=== PATIENT | female | born 1980 | race Caucasian/White ===

== ENCOUNTER → 2016-06-07 | Outpatient (CLI) | payer OTHER ==
[~2016-06-07] MED LIST: AMOXICILLIN500 MG PO; ANAPROX DS550 MG PO; BACTRIM DS 8001 TA1 PO; BIRTH CONTROL1 EAC1 PO; CIPRO500 MG PO; CLARITIN-D 10 M1 T21 PO; DAYPRO600 M1 PO; FLAGYL500 MG PO; FLEXERIL10 MG PO; FLEXERIL5 MG PO; FLONASE 0.05% 121 EA NAS; MONONESSA 35 MC1 TA2 PO; MOTRIN800 MG PO; NILSTAT,MY500000 UN/ PO; NORFLEX100 MG PO; PERCOCET 325 MG1 TA2 PO; PHENERGAN W/DM120 ML PO; PRENTAL 1 PLUS1 TAB PO; ROBAXIN750 MG PO; SUBOXONE 8 MG-1 EACH SL; SUDAFED60 M1 PO; TRAMADOL HCL50 MG PO; ULTRAM50 MG PO; VICODIN 500 MG-1 TAB PO; VITAMIN D1000 IU PO; VOLTAREN50 M1 PO; ZITHROMAX250 MG PO; ZYRTEC10 MG PO; [UNRECOGNIZED DRUG - REMARK]
[2016-06-07 09:16] LABS: BASO # 0.1 10*3/uL (0.0-0.1); BASO % 0.6 % (0.0-1.0); EOS # 0.6 10*3/uL (0.0-0.4); EOS % 4.7 % (1.0-4.0); HEMATOCRIT 40.7 % (37.0-47.0); HEMOGLOBIN 13.4 g/dl (12.0-16.0); IG # 0.1 10*3/uL (0.0-0.1); LYMPH # 3.6 10*3/uL (1.3-4.4); LYMPH % 28.8 % (27.0-41.0); MEAN CELL VOLUME 92.7 fl (81.0-99.0); MEAN CORPUSCULAR HGB 30.5 pg (27.0-31.0); MEAN CORPUSCULAR HGB CONC 32.9 g/dl (33.0-37.0); MEAN PLATELET VOLUME 10.8 fl (9.6-12.3); MONO % 7.7 % (3.0-9.0); NEUT # 7.2 10*3/uL (2.3-7.9); NEUT % 57.7 % (47.0-73.0); PLATELET COUNT AUTOMATED 277 10*3/uL (130-400); RED BLOOD COUNT 4.39 10*6/uL (4.10-5.10); RED CELL DISTRI WIDTH 12.4 % (0-14.5); WHITE BLOOD COUNT 12.5 10*3/uL (4.8-10.8)
[2016-06-07 09:54] LABS: ALBUMIN 3.5 gm/dl (3.1-4.5); ALKALINE PHOSPHATASE 83 U/L (45-117); BILIRUBIN, TOTAL 0.2 mg/dl (0.2-1.0); BUN 14 mg/dl (7-24); CARBON DIOXIDE 29 mmol/L (21-32); CHLORIDE 104 mmol/L (98-107); CHOLESTEROL 183 mg/dL (<200); EST GLOM FILT AFRICAN AMERICAN > 60 ml/min; GLUCOSE 95 mg/dL (65-99); HDL CHOLESTEROL 41 mg/dl (40-60); LDL CHOLESTEROL 101 mg/dL (9-159); POTASSIUM 3.7 mmol/L (3.5-5.1); SGOT/AST 85 IU/L (3-35); SGPT/ALT 75 U/L (12-78); SODIUM 141 mmol/L (136-145); TOTAL PROTEIN 7.6 gm/dL (6.4-8.2); TRIGLYCERIDES 203 mg/dl (<150); VLDL CHOLESTEROL 41 mg/dL (6-40)
== END | disposition home or self-care (01) ==
LOC: LAB 08:34
PROVIDERS: Nurse Practitioner Family
DX: G43.109 Migraine with aura, not intractable, without status migrainosus (principal); E78.4 Other hyperlipidemia; D72.829 Elevated white blood cell count, unspecified

== ENCOUNTER → 2016-11-14 | Outpatient (CLI) | payer OTHER | END | disposition home or self-care (01) | LOC: RAD 21:20 | DX: M25.531 Pain in right wrist (principal); M25.512 Pain in left shoulder ==

== ENCOUNTER 2018-04-01 15:11 | Emergency (ER) | payer OTHER ==
[~2018-04-01] VITALS: Ht 165.1 cm; Wt 68.0 kg
[~2018-04-01 15:11] MED LIST changes: +AUGMENTIN 500500 MG PO; +ZOFRAN4 MG PO
[2018-04-01 15:12] VITALS: BP 122/77
[2018-04-01 15:30] LABS: BILIRUBIN NEGATIVE (NEGATIVE); BLOOD NEGATIVE (NEGATIVE); CLARITY SL CLOUDY (CLEAR); COLOR YELLOW (YELLOW); GLUCOSE NEGATIVE (NEGATIVE); KETONE NEGATIVE (NEGATIVE); LEUKO ESTERASE TRACE (NEGATIVE); NITRITE NEGATIVE (NEGATIVE); PH 5.5 (5.0-9.0); SPECIFIC GRAVITY 1.025 (1.005-1.030); UROBILINOGEN 0.2 E.U./dl (0.2-1.0)
[2018-04-01 15:36] LABS: MUCOUS 1+; RBC 0-2 rbc/hpf (0-2)
[2018-04-01 15:37] LABS: BACTERIA TRACE
[2018-04-01] MEDS ORDERED: ZOFRAN4 MG PO (16:48)
== END 2018-04-01 16:58 | disposition home or self-care (01) ==
LOC: ED 15:11
PROVIDERS: Physician Assistant
DX: R11.0 Nausea (principal); F17.200 Nicotine dependence, unspecified, uncomplicated; Z32.02 Encounter for pregnancy test, result negative; Z88.1 Allergy status to other antibiotic agents; Z88.6 Allergy status to analgesic agent; Z88.8 Allergy status to other drugs, medicaments and biological substances

== ENCOUNTER 2018-10-25 22:13 | Emergency (ER) | payer OTHER ==
[~2018-10-25] VITALS: Ht 160 cm; Wt 68.0 kg
[2018-10-25 22:17] VITALS: BP 118/53
[2018-10-25] MEDS ORDERED: BUPREN/NALOX SUB 8-2 PO (22:38)
[2018-10-25] MEDS ORDERED: OMEPRAZOLE MAGN20 MG PO (22:39)
[2018-10-25] MEDS ORDERED: PROPRANOLOL HCL20 MG PO (22:39)
== END 2018-10-26 00:13 | disposition home or self-care (01) ==
LOC: ED 22:13
DX: S01.81XA Laceration without foreign body of other part of head, initial encounter (principal); F17.200 Nicotine dependence, unspecified, uncomplicated; Z88.1 Allergy status to other antibiotic agents; Z88.8 Allergy status to other drugs, medicaments and biological substances; Z88.6 Allergy status to analgesic agent; Z79.899 Other long term (current) drug therapy; W01.0XXA Fall on same level from slipping, tripping and stumbling without subsequent striking against object, initial encounter; Y93.89 Activity, other specified; Y92.89 Other specified places as the place of occurrence of the external cause; Y99.8 Other external cause status

== ENCOUNTER 2019-01-24 17:58 | Emergency (ER) | payer OTHER ==
[~2019-01-24] VITALS: Ht 165.1 cm; Wt 68.0 kg
[~2019-01-24 17:58] MED LIST changes: +BUPREN/NALOX SUB 8-2 PO; +OMEPRAZOLE MAGN20 MG PO; +PROPRANOLOL HCL20 MG PO
[2019-01-24 17:59] VITALS: BP 128/70
[2019-01-24] MEDS ORDERED: CEFADROXIL500 M1 PO (18:19)
[2019-01-24] MEDS ORDERED: ANAPROX DS550 MG PO (18:19)
== END 2019-01-24 19:11 | disposition home or self-care (01) ==
LOC: ED 17:58
DX: L03.011 Cellulitis of right finger (principal); R51 Headache; K21.9 Gastro-esophageal reflux disease without esophagitis; F17.200 Nicotine dependence, unspecified, uncomplicated; Z88.1 Allergy status to other antibiotic agents; Z88.8 Allergy status to other drugs, medicaments and biological substances; Z79.899 Other long term (current) drug therapy

== ENCOUNTER 2019-11-20 14:29 | Emergency (ER) | payer OTHER ==
[~2019-11-20] VITALS: Ht 165.1 cm; Wt 74.8 kg
[~2019-11-20 14:29] MED LIST changes: +CEFADROXIL500 M1 PO
[2019-11-20 14:38] VITALS: BP 110/64
[2019-11-20 16:14] LABS: BILIRUBIN Negative (Negative); BLOOD Negative (Negative); CLARITY Clear (Clear); COLOR Yellow (Yellow); GLUCOSE Negative (Negative); KETONE Negative (Negative); LEUKO ESTERASE Negative (Negative); NITRITE Negative (Negative); UROBILINOGEN 0.2 E.U./dl (0.0-1.0)
[2019-11-20 16:23] LABS: BACTERIA 1+; EPITHELIAL CELLS TNTC
[2019-11-20 16:24] LABS: RBC 0-2 rbc/hpf (0-2)
== END 2019-11-20 17:00 | disposition home or self-care (01) ==
LOC: ED 14:29
PROVIDERS: Nurse Practitioner
DX: O26.892 Other specified pregnancy related conditions, second trimester (principal); K59.00 Constipation, unspecified; Z3A.00 Weeks of gestation of pregnancy not specified

== ENCOUNTER 2020-05-07 01:15 | Emergency (ER) | payer OTHER ==
[~2020-05-07] VITALS: Ht 157.4 cm; Wt 63.5 kg
[2020-05-07 01:22] VITALS: BP 146/95
[2020-05-07] MEDS ORDERED: AMOXICILLIN500 M2 PO (02:51)
== END 2020-05-07 03:17 | disposition home or self-care (01) ==
LOC: ED 01:15
DX: K04.7 Periapical abscess without sinus (principal); Z88.8 Allergy status to other drugs, medicaments and biological substances; Z79.899 Other long term (current) drug therapy; Z98.890 Other specified postprocedural states

== ENCOUNTER 2021-09-11 19:39 | Emergency (ER) | payer OTHER ==
[~2021-09-11] VITALS: Wt 63.5 kg
[~2021-09-11 19:39] MED LIST changes: +AMOXICILLIN500 M2 PO
[2021-09-11 20:10] VITALS: BP 142/90
== END 2021-09-12 04:19 | disposition left against medical advice (07) ==
LOC: ED 19:39
DX: S00.83XA Contusion of other part of head, initial encounter (principal); Z88.1 Allergy status to other antibiotic agents; Z88.8 Allergy status to other drugs, medicaments and biological substances; F17.200 Nicotine dependence, unspecified, uncomplicated; W22.8XXA Striking against or struck by other objects, initial encounter; Y93.89 Activity, other specified; Y92.89 Other specified places as the place of occurrence of the external cause; Y99.8 Other external cause status